=== PATIENT | female | born 2005 | race Caucasian/White ===

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

== ENCOUNTER 2025-01-25 17:22 | Emergency (ER) | payer OTHER, SELFPAY ==
--- NOTE | ~2025-01-25 | US_ITS ---
EXAMINATION: US soft tissue groin LT DATE: 01/25/2025 18:20 INDICATION: Left groin mass. TECHNIQUE: Multiple grayscale and Doppler ultrasound images of the left groin were obtained. COMPARISON: None FINDINGS: There is a 2.8 x 1.7 x 2.4 cm left inguinal lymph node. IMPRESSION: 1. Enlarged left inguinal lymph node, most likely reactive if there is no history of malignancy. Reviewed, dictated and finalized at location E. IMPRESSION: 1. Enlarged left inguinal lymph node, most likely reactive if there is no histo ry of malignancy.
--- OUTSIDE RECORDS SUMMARY | 2025-01-25 17:24 | XMS_ITS | Clinical Summary ---
Author Organization [facility] Address [address] [place] [address] Care Team Providers Care Investigation Officer Name Role Phone Sandra Snyder MD Primary Care Provider [phone] Source Comments [facility],non-owned Affiliates and Associated Physician Practices is amultiple site organization consisting of ambulatory clinics and hospital sitesin [place], [place], [place] and [place]. This disclosure is being madepursuant to the Care Everywhere program and may not contain all information available regarding this patient. Last updated 18.[facility] Allergies No known active allergies Medications * This document contains information received from the source organization and may not represent a complete record from that organization. * Be aware that medications may not be up to date on this document. Alwaysverify current medications with the patient. acetaminophen (Tylenol) 325 MG tablet Take 2 (two) tablets by mouth every 4 hours as needed for Fever or Pain Maximum allowable Acetaminophen amount = 4 Grams (4000 mg) / 24 hours. 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 Gender Identity Not on file Sexual Orientation Not on file Last Filed Vital Signs Vital Sign Reading Time Taken Comments Blood Pressure 110/66 04/04/2022 3:30 AM SKEIN MERCERIZING MACHINE OPERATOR Pulse 73 04/04/2022 3:30 AM SKEIN MERCERIZING MACHINE OPERATOR Temperature 36.8 C (98.2 F) 04/04/2022 2:20 AM SKEIN MERCERIZING MACHINE OPERATOR Respiratory Rate 12 04/04/2022 3:30 AM SKEIN MERCERIZING MACHINE OPERATOR Oxygen Saturation 98% 04/04/2022 3:30 AM SKEIN MERCERIZING MACHINE OPERATOR Inhaled Oxygen Concentration - - Weight 48 kg (105 lb 13.1 oz) 04/04/2022 2:31 AM SKEIN MERCERIZING MACHINE OPERATOR Height 160 cm (5' 3) 08/14/2021 2:09 PM CDT Body Mass Index - - Plan of Treatment Health Maintenance Due Date Last Done Comments HIV SCREENING 02/05/2020 HPV VACCINE (1 - 3-dose series) 02/05/2020 MENINGOCOCCAL (Group B) VACC INE SHARED DECISION-MAKING (1 of 2 - Standard) 2021 HEPATITIS C SCREENING 01/31/2023 CHLAMYDIA/GONORRHEA SCREENING 04/02/2023 04/02/2022 DTAP/TDAP/TD VACCINES (1 - Tdap) 02/05/2024 HEPATITIS B VACCINE (1 of 3 - 19+ 3-dose series) 02/05/2024 DEPRESSION SCREENING 05/12/2024 04/04/2022 COVID-19 VACCINE (1 - 2023-2 5 season) 2025 INFLUENZA VACCINE (#1) 2025 ZOSTER VACCINE (1 of 2) 2055 HIB VACCINE Aged Out No longer eligi ble based on patient's age to complete this topic MENINGOCOCCAL GROUPS A/C/Y/W VACCINE Aged Out No longer eligible b ased on patient's age to complete this topic PNEUMOCOCCAL VACCINE Aged Out No long er eligible based on patient's age to [place] [address] [facility] Member Subscriber Plan / Payer (Ef fective 2021-Present) Name:Faye Egan Relation to Subscriber:Child Name:KIERAN EGAN Jaylin Subscriber ID:Not on file Date of :1962 (Home) Address: [address] [address] Payer ID:[id number] (NAIC) Type:O Address: [place] [id number] [place] [phone] Care Teams Investigation Officer Relationship Specialty Start Date End Date Sandra Snyder MD [address] [place], [place] [id number] PCP - General Pediatrics 04/04/22
--- OUTSIDE RECORDS SUMMARY | 2025-01-25 17:24 | XMS_ITS | Clinical Summary ---
Author Organization [facility] Address [address] [place] [id number] Care Team Providers Care Turbine Operator Name Role Phone None, Provider Primary Care [...] on file Legal Sex Female 1:17 AM SANDER HAND Gender Identity Not on file Sexual Orientation Not on file Last Filed Vital Signs Vital Sign Reading Time Taken Comments Blood Pressure 128/78 04/04/2022 1:27 AM SANDER HAND Pulse 93 04/04/2022 1:30 AM SANDER HAND Temperature 36.8 C (98.2 F) 04/04/2022 1:27 AM SANDER HAND Respiratory Rate 19 04/04/2022 1:3 0 AM SANDER HAND Oxygen Saturation 98% 04/04/2022 1:30 AM SANDER HAND Inhaled Oxygen Concentration - - Weight 47.8 kg (105 lb 6.1 oz) 04/04/2022 1:27 A M SANDER HAND Height 162.6 cm (5' 4) 04/04/2022 1:27 AM SANDER HAND Body Mass Index 18.09 04/04/2022 1:27 AM SANDER HAND Body Mass Index Percentile 11.94% 04/04/2022 1:2 7 AM SANDER HAND Growth Chart: CDC (Girls, 2- 20 Years) Plan of Treatment Health Maintenance Due Date Last Done Comments Annual Physical 02/05/2008 HPV Vaccines (1 - 3-dose series) 02/05/2020 Meningococcal B Vaccine (1 o f 2 - Standard) 2021 Hepatitis C 2023 DTaP, Tdap and Td Vaccines ( 1 - Tdap) 02/05/2024 Hepatitis B Vaccines (1 of 3 - 19+ 3-dose series) 02/05/2024 COVID-19 Vaccine (2023-2 5 season) 2025 Meningococcal Vaccine Aged Out No cornelia mat eligible based on patient's age to complete this topic Pneumococcal Vaccine: Pediat rics (0 to 5 Years) and At-Risk Patients (6 to 49 Years) Aged Out No longer eligible b ased on patient's age to complete this topic RSV Immunizations Under 20 Months Aged Out No longer eligible based on patient's age to complete this topic Insurance [facility] [employer] Care Teams Turbine Operator Relationship Specialty Start Date End Date None, Provider, MD PCP - General UNKNOWN PHYSICIAN SPECIALTY 04/04/22
--- NOTE | 2025-01-25 18:01 | ED.SKABFB ---
HPI - Skin/Abscess/Foreign Bdy General Chief complaint: Skin/Abscess/Foreign Body Stated complaint: poss abcsess, fever Time Seen by Provider: 01/25/25 17:37 History of Present Illness HPI narrative: Patient is a 19-year-old female who presents to the ER with a palpable mass on her left upper anterior thigh. She reports she 1st noticed the spot 5 days ago. Patient initially thought it was a muscle strain, but she is able to feel a collection underneath her skin. She reports she believes the site has grown and is painful to the touch. Pt denies any warmth to the site, recent fevers, urinary symptoms, abdominal pain or back pain. She reports she has never had masses like this before. Patient endorses a history of poison sabino a couple months ago but otherwise denies any relevant medical history. Related Data Home Medications ?Medication ?Instructions ?Recorded ?Confirmed ?Last Taken ?Type No Home Medications 08/17/23 08/17/23 Unknown History Allergies Allergy/AdvReac Type Severity Reaction Status Date / Time No Known Allergies Allergy Verified 01/25/25 17:24 Review of Systems Review of Systems: All systems reviewed & are unremarkable except as noted in HPI and below PMFSH Past Medical History Medical History Anxiety and depression Surgical History Surgical History No history of previous surgery Social History Social History Smoking status: Never smoker Alcohol intake: unknown Substance use: unknown Living arrangements: with family Occupation/Education: student Gender identity (if verbalized by the patient): Female Exam Narrative: GENERAL: Well appearing, well-nourished, non-toxic, in no acute distress. HEAD: Normocephalic, atraumatic. NECK: Supple. No adenopathy, no masses. RESPIRATORY: Airway patent, respirations nonlabored. Clear to auscultation bilaterally, no rales, rhonchi, wheezing. CARDIOVASCULAR: Regular rate and rhythm without murmurs, rubs, or gallops. Peripheral pulses 2+ and equal bilaterally. ABDOMINAL: Soft, nontender, nondistended, no hepatosplenomegaly. Normoactive BS. MUSCULOSKELETAL: Moves all extremities. Strength/ROM intact without gross deformities. SKIN: Warm, dry, normal color. No rashes. Palpable area approximately 6cm x 3cm, no redness or visible drainage NEURO: A&O X3. Speech clear. Cranial nerves II-XII intact. No ataxic movements. PSYCHIATRIC: Appropriate mood and affect. Normal interaction. MDM - Skin/Abscess/Foreign Bdy MDM Narrative Medical decision making narrative: Patient is a 19-year-old female who presents to the ER with a palpable mass on her left upper anterior thigh. She reports she 1st noticed the spot 5 days ago. Patient initially thought it was a muscle strain, but she is able to feel a collection underneath her skin. She reports she believes the site has grown and is painful to the touch. Pt denies any warmth to the site, recent fevers, urinary symptoms, abdominal pain or back pain. She reports she has never had masses like this before. Patient endorses a history of poison sabino a couple months ago but otherwise denies any relevant medical history. Labs Ordered: None necessary Imaging Ordered: Ultrasound soft tissue left groin Medications Ordered: None necessary Results: Patient's ultrasound indicates patient has a 1.6 cm left inguinal lymph node Diagnosis: Lymphadenopathy Patient Education/Shared MDM: Results of ultrasound shared with patient. She was offered to have a urinalysis run, but patient declined. Patient strongly advised to follow-up with her PCP as soon as possible. She will not be discharged home with any new prescriptions. Strict return precautions provided (including fevers, growth in size of node, increased pain). Patient verbalized understanding and is in agreement with plan. Vital signs stable at time of discharge. All questions answered. Differential Diagnosis Differential diagnosis: Likely abscess of skin or subcutaneous tissue, cellulitis and other (Swollen lymph node) Imaging Data Attestation: I personally reviewed and interpreted this imaging study as follows: Radiologist's impression: Patient's ultrasound indicates patient has a 1.6 cm left inguinal lymph node Discharge Plan Discharge Clinical Impression: Lymphadenopathy, Abdominal or pelvic swelling, mass, or lump, left lower quadrant Patient Disposition: Home Condition: Stable Instructions: Antibiotic Form, Lymphadenopathy (ED) Additional Instructions: Please return to the ER with any worsening symptoms. Follow-up with primary care provider as soon as possible for further evaluation. You may take Tylenol and/or ibuprofen for pain control. Please return to the ER if you develop a fever, urinary symptoms, abnormal vaginal discharge, or increased pain. Patient Language: Burmese Prescriptions: No Action No Home Medications Follow-up/Referrals: Sandra Snyder MD [Primary Care Provider, Pediatrics] Time of Disposition: 23:41
--- OUTSIDE RECORDS SUMMARY | 2025-01-25 18:50 | XMS_ITS | Clinical Summary ---
Author Organization [facility] Address [address] [place] [id number] Care Team Providers Care Family And Marriage Counsellor Name Role Phone None, Provider Primary Care [...] on file Legal Sex Female 1:17 AM DATA ANALYSIS INTERN Gender Identity Not on file Sexual Orientation Not on file Last Filed Vital Signs Vital Sign Reading Time Taken Comments Blood Pressure 128/78 04/04/2022 1:27 AM DATA ANALYSIS INTERN Pulse 93 04/04/2022 1:30 AM DATA ANALYSIS INTERN Temperature 36.8 C (98.2 F) 04/04/2022 1:27 AM DATA ANALYSIS INTERN Respiratory Rate 19 04/04/2022 1:3 0 AM DATA ANALYSIS INTERN Oxygen Saturation 98% 04/04/2022 1:30 AM DATA ANALYSIS INTERN Inhaled Oxygen Concentration - - Weight 47.8 kg (105 lb 6.1 oz) 04/04/2022 1:27 A M DATA ANALYSIS INTERN Height 162.6 cm (5' 4) 04/04/2022 1:27 AM DATA ANALYSIS INTERN Body Mass Index 18.09 04/04/2022 1:27 AM DATA ANALYSIS INTERN Body Mass Index Percentile 11.94% 04/04/2022 1:2 7 AM DATA ANALYSIS INTERN Growth Chart: CDC (Girls, 2- 20 Years) [...] patient's age to complete this topic Insurance [facility] [employer] [employer] [place] Care Teams Family And Marriage Counsellor Relationship Specialty Start Date End Date None, Provider, MD PCP - General UNKNOWN PHYSICIAN SPECIALTY 04/04/22
--- OUTSIDE RECORDS SUMMARY | 2025-01-25 18:50 | XMS_ITS | Clinical Summary ---
Author Organization [facility] Address [address] [place] [address] Care Team Providers Care Search Engine Optimization Consultant Name Role Phone Sandra Snyder MD Primary Care Provider [phone] Source Comments [facility],non-owned Affiliates and Associated Physician Practices is amultiple site organization consisting of ambulatory clinics and hospital sitesin [place], [place], [place] and [place]. This disclosure is being madepursuant to the Care Everywhere program and may not contain all information available regarding this patient. Last updated 18.[facility] [employer] Allergies No known active allergies Medications * [...] on file Legal Sex Female 5:45 AM SENIOR SYSTEMS ANALYST Gender Identity Not on file Sexual Orientation Not on file Last Filed Vital Signs Vital Sign Reading Time Taken Comments Blood Pressure 110/66 04/04/2022 3:30 AM SENIOR SYSTEMS ANALYST Pulse 73 04/04/2022 3:30 AM SENIOR SYSTEMS ANALYST Temperature 36.8 C (98.2 F) 04/04/2022 2:20 AM SENIOR SYSTEMS ANALYST Respiratory Rate 12 04/04/2022 3:30 AM SENIOR SYSTEMS ANALYST Oxygen Saturation 98% 04/04/2022 3:30 AM SENIOR SYSTEMS ANALYST Inhaled Oxygen Concentration - - Weight 48 kg (105 lb 13.1 oz) 04/04/2022 2:31 AM SENIOR SYSTEMS ANALYST Height 160 cm (5' 3) 08/14/2021 2:09 [...] age to complete this [place] [address] [facility] CARE Member Subscriber Plan / Payer (Ef fective 2021-Present) Name:Faye Egan Relation to Subscriber:Child Name:KIERAN EGAN Jaylin Subscriber ID:Not on file Date of :1962 (Home) Address: [address] [place] [address] Payer ID:[id number] (NAIC) Type:O Address: [place] [id number] [place] [id number] Care Teams Search Engine Optimization Consultant Relationship Specialty Start Date End Date Sandra Snyder MD [address] [place], [place] [id number] PCP - General Pediatrics 04/04/22
[2025-01-25 23:47] VITALS: BP 120/87; PULSE 81; RESP 12; O2SAT 99
== END 2025-01-25 23:56 | disposition home or self-care (01) ==
PROVIDERS: Emergency Provider Registered Nurse; PCP Pediatrics
DX: R59.1 Generalized enlarged lymph nodes (principal); R19.04 Left lower quadrant abdominal swelling, mass and lump
CPT/HCPCS: 76882; 99284